=== PATIENT | male | born 1965 | race Two or more races ===

== ENCOUNTER 2018-02-04 09:55 | Emergency (ER) | payer OTHER, BC ==
[2018-02-04] MEDS ORDERED: Ibuprofen 600 MG Tab PO ONE (10:35)
--- NOTE | 2018-02-04 10:37 | EDM.PDOC ---
ED HPI GENERAL MEDICAL PROBLEM - General Chief Complaint: Back Pain or Injury Stated Complaint: BACK PAIN Time Seen by Provider: 02/04/18 10:14 Source of Information: Reports: Patient History Limitations: Reports: No Limitations - History of Present Illness INITIAL COMMENTS - FREE TEXT/NARRATIVE: The patient states that he was in an elevating basket at work, when the turn operator dropped the basket about 7 feet, too quickly, around 09:45 this morning. The patient states that the basket hit the ground. The patient remained in the basket, but states that he felt his knees, and possibly to his buttocks while in the basket. He presents with lower left back and left buttock pain. The patient states that he is not taking any pain medication since the injury. The patient does not have a PCP. Right Lower Back Pain Score (Numeric/FACES): 6 - Related Data Allergies Allergy/AdvReac Type Severity Reaction Status Date / Time No Known Allergies Allergy Verified 02/04/18 09:59 Home Meds: Home Meds Orphenadrine [Norflex] 1 tab PO Q12H PRN #14 tab.er 02/04/18 [Rx] Past Medical History - Past Surgical History Musculoskeletal Surgical History: Reports: Other (See Below) (Left Achilles tendon repair around 1993) Social & Family History - Tobacco Use Smoking Status *Q: Current Every Day Smoker Years of Tobacco use: 23 Packs/Tins Daily: 0.2 - Alcohol Use Alcohol Use History: Yes Alcohol Use Frequency: Socially - Recreational Drug Use Recreational Drug Use: No - Living Situation & Occupation Living situation: Reports: , Alone Occupation: Employed ([employer]) ED ROS GENERAL - Review of Systems Review Of Systems: ROS reveals no pertinent complaints other than HPI. ED EXAM,LOWER BACK PAIN/INJURY - Physical Exam Exam: See Below Exam Limited By: No Limitations General Appearance: Alert, WD/WN, No Apparent Distress Eye Exam: Bilateral Eye: Normal Inspection Ears: Normal External Exam, Hearing Grossly Normal Nose: Normal Inspection, No Blood Throat/Mouth: Normal Inspection, Normal Lips, Normal Voice, No Airway Compromise Head: Atraumatic, Normocephalic Neck: Normal Inspection, Full Range of Motion Respiratory/Chest: No Respiratory Distress, Lungs Clear, Normal Breath Sounds, No Accessory Muscle Use Cardiovascular: Normal Peripheral Pulses, Regular Rate, Rhythm, No Gallop, No JVD, No Murmur, No Rub GI/Abdominal: Normal Bowel Sounds, Soft, Non-Tender, No Organomegaly, No Distention, No Abnormal Bruit, No Mass (Male) Exam: Deferred Rectal (Males) Exam: Deferred Back Exam: Other (No visible abnormality to the patient's back, such as swelling , erythema, ecchymosis, or abrasion. The patient indicates tenderness to palpation along the lumbar spinous processes, as well as to the left paraspinous musculature. Straight leg raise is negative to 90 bilaterally. The patient is able to sit with his legs extended at 90 on the gurney. The patient is able to flex the spine to 45, and extend the spine to 40. He is able to tilt spine bilaterally to 40. He is able to twist to the right to 45, to the left 30. Unilateral knee bend is normal bilaterally.) Extremities: Normal Inspection, Normal Range of Motion, Non-Tender, No Pedal Edema, Normal Capillary Refill Neurological: Alert, No Motor/Sensory Deficits, Oriented x 3 Psychiatric: Normal Affect Skin Exam: Warm, Dry, Intact, Normal Color, No Rash Course - Vital Signs Last Recorded V/S: Last Vital Signs Temp Pulse 71 02/04/18 09:59 Resp 18 02/04/18 09:59 BP 139/96 H 02/04/18 09:59 Pulse Ox 96 02/04/18 09:59 - Orders/Labs/Meds Orders: Active Orders 24 hr Category Date Time Status Lumbar Spine 2 or 3V [CR] Stat Exams 02/04/18 10:34 Taken Meds: Medications Discontinued Medications Generic Name Dose Route Start Last Admin Trade Name Chana PRN Reason Stop Dose Admin Ibuprofen 600 mg 02/04/18 10:35 02/04/18 10:37 Motrin PO 02/04/18 10:36 600 mg ONETIME ONE Administration - Re-Assessments/Exams Free Text/Narrative Re-Assessment/Exam: 02/04/18 10:46 2-view radiographs of the lumbar spine appear to be normal. No fractures or dislocations identified. Formal read per the Radiologist pending. 02/04/18 10:52 The patient's back pain appears to be due to a muscle spasm. His physical examination is not consistent with a herniated intervertebral disc. I have started him on oral Norflex, and will e-prescribe the same. 02/04/18 11:01 The patient prefers that the e-prescription be sent to his local pharmacy in [place], as opposed to here in [place]. Departure - Departure Time of Disposition: 10:52 Disposition: Home, Self-Care 01 Condition: Good Clinical Impression: Strain of muscle, fascia and tendon of lower back, initial encounter - Discharge Information Referrals: PCP,None [Primary Care Provider] - Forms: ED Department Discharge Additional Instructions: You were seen in the emergency room after the basket that you were in at work fell, injuring your back. Workup in the ER included x-rays of your back, which were normal. No broken bones or dislocations. Your back pain is MOST LIKELY due to strained muscles. You have been started on the muscle relaxant Norflex. A prescription for Norflex has been sent to [facility], [address] [place] [address]. Take one tablet every 12 hours, starting tonight, 02/04/2018, as prescribed. Take [id number] ibuprofen, 2-3 tablets (400-600 mg) every 8 hours, with food. Try to avoid bending over, twisting your back, or lifting items heavier than 10 pounds, however, it is very important that you stay active. Swimming is best, but walking is also good. Follow-up with your PCP as needed. If any other problems, please do not hesitate to return to the ER. - My Orders Last 24 Hours: My Active Orders 02/04/18 10:34 Lumbar Spine 2 or 3V [CR] Stat - Assessment/Plan Last 24 Hours: My Active Orders 02/04/18 10:34 Lumbar Spine 2 or 3V [CR] Stat
[2018-02-04] MEDS ORDERED: Orphenadrine 100 MG Tab.ER PO STA (10:47)
--- NOTE | 2018-02-04 13:08 | CR ---
Lumbar spine: AP and lateral views of the lumbar spine were obtained. Comparison: No prior study. Transitional segment is seen at the lumbosacral junction. 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 Vertebral body heights are maintained. Minimal posterior disc space narrowing noted at L3-L4 and L4-L5. Pedicles as well as transverse and spinous processes are intact. No subluxation or fracture is seen. Impression: 1. Transitional segment as described above. 2. Minimal degenerative change. Nothing acute is appreciated. Diagnostic code #2
== END 2018-02-04 11:15 | disposition home or self-care (01) ==
LOC: JD.ED 09:55
DX: S39.012A Strain of muscle, fascia and tendon of lower back, initial encounter (principal); F17.210 Nicotine dependence, cigarettes, uncomplicated; W20.8XXA Other cause of strike by thrown, projected or falling object, initial encounter
CPT/HCPCS: 72100; 99283; A9270